=== PATIENT | male | born 1960 | race African-American/Black ===

== ENCOUNTER 2019-01-30 10:03 | Emergency (ER) | payer BC ==
[2019-01-30 10:17] VITALS: BP 163/108
--- NOTE | 2019-01-30 10:46 | UC ---
Hand/Wrist HPI - HPI Summary HPI Summary: He started feeling pain in his left wrist yesterday while walking. He does not have any known injury but the pain has gotten worse and now it hurts a lot when he is trying to pick things up etc. He points to his volar lateral wrist. - History Of Current Complaint Chief Complaint: UCUpperExtremity Stated Complaint: HAND SWELLING Time Seen by Provider: 01/30/19 10:36 Pain Intensity: 8 - Allergies/Home Medications Allergies/Adverse Reactions: Allergies Allergy/AdvReac Type Severity Reaction Status Date / Time No Known Allergies Allergy Verified 01/30/19 10:09 Home Medications: Home Medications Ibuprofen TAB* [Motrin TAB* 400 MG] 400 mg PO Q6H PRN 01/30/19 [History Confirmed 01/30/19] PMH/Surg Hx/FS Hx/Imm Hx Previously Healthy: Yes - Surgical History Surgical History: None - Social History Alcohol Use: None Substance Use Type: None Smoking Status (MU): Never Smoked Tobacco Review of Systems All Other Systems Reviewed And Are Negative: Yes Constitutional: Positive: Negative Motor: Positive: Negative Neurovascular: Positive: Negative Musculoskeletal: Positive: Arthralgia, Decreased ROM Neurological: Positive: Negative Physical Exam - Summary Physical Exam Summary: Is nontoxic in appearance with stable vitals. Vital Signs: Initial Vital Signs Temp 97.6 F 01/30/19 10:11 Pulse 72 01/30/19 10:11 Resp 18 01/30/19 10:11 BP 163/108 01/30/19 10:11 Pulse Ox 100 01/30/19 10:11 Diagnostics - Radiology left wrist Radiology Interpretation Completed By: Radiologist Summary of Radiographic Findings: Polyarticular arthritis Hand/Wrist Course/Dx - Course Course Of Treatment: This seems like an aggravation of a long-standing problem. He's got a lot of arthritis in his wrist and I'm going to splint him, recommend ibuprofen and have him follow-up with his PCP. - Differential Dx/Diagnosis Provider Diagnosis: Arthritis Discharge ED - Sign-Out/Discharge Documenting (check all that apply): Patient Departure All imaging exams completed and their final reports reviewed: Yes - Discharge Plan Condition: Stable Disposition: HOME Patient Education Materials: Arthritis (ED) Referrals: No Primary Care Phys,NOPCP [Primary Care Provider] - Additional Instructions: This is probably caused by the arthritis that you have in your wrist. There is no evidence that this is an infection but if you develop a fever or increasing pain, I recommend that you follow up immediately. Otherwise please follow up with your PCP in a week for recheck. - Billing Disposition and Condition Condition: STABLE Disposition: Home
== END 2019-01-30 12:00 | disposition home or self-care (01) ==
LOC: UCEAST 10:03
DX: M13.832 Other specified arthritis, left wrist (principal)
CPT/HCPCS: 99213; G0463

== ENCOUNTER 2019-05-04 19:42 | Emergency (ER) | payer BC ==
[2019-05-04 20:00] VITALS: BP 159/101
--- NOTE | 2019-05-04 20:24 | UC ---
Hand/Wrist HPI - HPI Summary HPI Summary: 58yo male presenting with with for right wrist pain since yesterday. Notes dorsolateral pain of right wrist. Notes dorsal swelling that he states has worsened today since he returned from work. 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 Notes pain worse with wrist movement and slightly better at rest. Notes decreased flexion and extension of wrist due to pain. Notes tingling in fingers intermittently. Denies recent injury or trauma. States he was seen here approximately 3 months ago for the same symptoms in his left wrist and diagnosed with arthritis. Patient denies trying anything for pain relief. - History Of Current Complaint Chief Complaint: UCUpperExtremity Stated Complaint: WRIST PAIN Hx Obtained From: Patient Pain Intensity: 9 Pain Scale Used: 0-10 Numeric - Allergies/Home Medications Allergies/Adverse Reactions: Allergies Allergy/AdvReac Type Severity Reaction Status Date / Time No Known Allergies Allergy Verified 01/30/19 10:09 Home Medications: Home Medications Acetaminophen TAB* [Tylenol TAB*] 650 mg 05/04/19 [History] PMH/Surg Hx/FS Hx/Imm Hx - Surgical History Surgical History: None - Social History Alcohol Use: None Substance Use Type: None Smoking Status (MU): Never Smoked Tobacco Review of Systems All Other Systems Reviewed And Are Negative: Yes Constitutional: Positive: Negative Respiratory: Positive: Negative Cardiovascular: Positive: Negative Gastrointestinal: Positive: Negative Musculoskeletal: Positive: Arthralgia - R wrist pain, Decreased ROM - flexion/ extension R wrist, Edema - R wrist Neurological: Positive: Paresthesia - R fingers intermittently. Negative: Numbness Physical Exam Triage Information Reviewed: Yes Appearance: Well-Appearing, No Pain Distress, Well-Nourished Vital Signs: Initial Vital Signs Temp 100.1 F 05/04/19 19:53 Pulse 85 05/04/19 19:53 Resp 16 05/04/19 19:53 BP 159/101 05/04/19 19:53 Pulse Ox 99 05/04/19 19:53 Vital Signs Reviewed: Yes Eyes: Positive: Conjunctiva Clear ENT: Positive: Hearing grossly normal Neck: Positive: Supple Respiratory: Positive: No respiratory distress Cardiovascular Exam: Normal Cardiovascular: Positive: RRR, Pulses Normal - strong radial pulses b/l, Brisk Capillary Refill - <2 sec Musculoskeletal: Positive: ROM Limited @ - Active flexion and extension of right wrist due to pain, Edema @ - Minimal edema noted of the dorsal right wrist , Other: - Tenderness to palpation of dorsolateral right wrist. Negative Phalen 's and Tinel signs. Neurological Exam: Other - sensation grossly intact Neurological: Positive: Alert Psychological: Positive: Age Appropriate Behavior Skin Exam: Normal Diagnostics - Radiology R wrist Radiology Interpretation Completed By: ED Physician Summary of Radiographic Findings: negative fx Hand/Wrist Course/Dx - Course Course Of Treatment: Discussed initial negative read of radiographs with patient and possible overuse vs osteoarthritis causing pain symptoms. Instructed to continue with RICE and otc analgesics. Instructed to follow up with ortho if pain persists. Also discussed elevated BP today. Instructed to follow up with physician referral for recheck of BP. Patient voiced understanding and agreed with treatment plan. - Differential Dx/Diagnosis Differential Diagnosis/HQI/PQRI: Contusion, Fracture, Sprain, Strain, Tendonitis , Other - Arthritis Provider Diagnosis: Acute pain of right wrist, Elevated blood pressure reading without diagnosis of hypertension Discharge ED - Sign-Out/Discharge Documenting (check all that apply): Patient Departure All imaging exams completed and their final reports reviewed: No - Discharge Plan Condition: Stable Disposition: HOME Prescriptions: Ibuprofen TAB* [Advil TAB*] 200 mg PO Q6H PRN #60 tab PRN Reason: Pain - Moderate Patient Education Materials: Hypertension (ED), Arthralgia (ED) Referrals: [facility] [place] PH[facility]IAN REFERRAL [Outside] - 2 Weeks Teo Quigley MD [Medical Doctor] - If Needed Additional Instructions: As discussed, your radiograph was reviewed by the provider that treated you tonight. It will be read by a radiologist tomorrow morning. If there is a finding other than that discussed with you today, you will receive a call from a care provider. Rest, ice, elevate, and use the wrist splint to help alleviate pain and swelling. You may also continue to take ibuprofen and/or tylenol as directed for pain relief. A prescription for ibuprofen was sent to your pharmacy. Follow up with the orthopedic referral listed below if your pain and swelling persists. Your blood pressure was elevated today. It is recommended that you follow up with your primary care provider or the physician referral listed below within the next 2 weeks for recheck of blood pressure. - Billing Disposition and Condition Condition: STABLE Disposition: Home
[2019-05-04] MEDS ORDERED: Ibuprofen TAB* 600 MG PO ONE (20:32)
[2019-05-04] MEDS ORDERED: Ibuprofen TAB* 400 MG PO ONE (20:52)
== END 2019-05-04 21:00 | disposition home or self-care (01) ==
LOC: UCEAST 19:42
DX: M25.531 Pain in right wrist (principal); R03.0 Elevated blood-pressure reading, without diagnosis of hypertension
CPT/HCPCS: 99212; A9270-GY; G0463